=== PATIENT | female | born 1985 | race Caucasian/White ===

== ENCOUNTER 2024-09-16 19:36 | Emergency (ER) | payer BC ==
[~2024-09-16] VITALS: Ht 170.2 cm; Wt 87.6 kg
[2024-09-16 19:42] VITALS: BP 139/95; PULSE 77; RESP 18; TEMP 37.3; O2SAT 100; O2SAT 99
[2024-09-16 20:13] LABS: COLOR URINE YELLOW (YELLOW); GLUCOSE URINE NEGATIVE (NEGATIVE); KETONES URINE NEGATIVE (NEGATIVE); LEUKOCYTE ESTERASE URINE TRACE (NEGATIVE); NITRITE URINE NEGATIVE (NEGATIVE); OCCULT BLOOD URINE NEGATIVE (NEGATIVE); PROTEIN URINE NEGATIVE (NEGATIVE); SPECIFIC GRAVITY URINE 1.015 (1.005-1.030); UROBILINOGEN URINE 0.2 E.U./dL (0.2-1.0)
[2024-09-16 20:29] LABS: BASOPHILS % 0.6 % (0.0-2.0); EOSINOPHILS % 1.2 % (0.0-5.0); HEMATOCRIT. 37.9 % (36.0-48.0); HEMOGLOBIN. 12.3 g/dL (12.0-16.0); LYMPHOCYTES % 29.1 % (20.0-50.0); MEAN CORPUSCULAR HEMOGLOBIN 26.8 pg (28.0-32.0); MEAN CORPUSCULAR HGB CONC 32.4 g/dL (31.0-37.0); MEAN CORPUSCULAR VOLUME 82.8 fL (81.0-99.0); MEAN PLATELET VOLUME 9.3 fl (7.4-10.4); MONOCYTES % 8.4 % (2.0-8.0); NEUTROPHILS % 60.7 % (40.0-76.0); PLATELET 330 x1000/uL (130-400); RED BLOOD CELL COUNT 4.57 mill/uL (4.2-5.4); RED CELL DISTRIBUTION WIDTH 15.8 % (11.6-14.6); WHITE BLOOD COUNT 8.1 x1000/uL (4.5-11.0)
[2024-09-16 20:36] LABS: CHLORIDE 106 mEq/L (98-107); POTASSIUM 3.8 mEq/L (3.5-5.1); SODIUM 141 mEq/L (136-145)
[2024-09-16 20:38] LABS: CALCIUM 9.3 mg/dL (8.7-10.4); CARBON DIOXIDE 25 mEq/L (21-32)
[2024-09-16 20:40] LABS: CLARITY URINE HAZY (CLEAR)
[2024-09-16 20:43] LABS: CREATININE 0.7 mg/dL (0.6-1.0); GLUCOSE 101 mg/dL (70-105); UREA NITROGEN BLOOD 8 mg/dL (9-23)
[2024-09-16 20:45] LABS: ALANINE AMINOTRANSFERASE 11 IU/L (10-49); ALBUMIN 4.1 g/dL (3.2-4.8); ASPARTATE AMINOTRANSFERASE 15 IU/L (<34); BILIRUBIN DIRECT < 0.1 mg/dL (<=3.0); BILIRUBIN TOTAL 0.5 mg/dL (0.1-1.0); PROTEIN TOTAL 6.9 g/dL (6.0-8.3)
[2024-09-16 20:46] LABS: RBC URINE NONE SEEN /hpf (0-2); WBC URINE 0-2 /hpf (0-2)
[2024-09-16 20:47] LABS: BACTERIA URINE 1+; SQUAMOUS EPITHELIAL CELL URINE 2+ /lpf (RARE/1+)
[2024-09-16] MEDS: ONDANSETRON HCL 4MG/2ML INJ IV ONE (20:53)
[2024-09-16] MEDS: SODIUM CHLORIDE 0.9% 1,000 ML IV ONE (20:53)
[2024-09-16] MEDS ORDERED: ONDA-239 PO (21:11)
[2024-09-16] MEDS ORDERED: LOPE2CAP MT (21:11)
== END 2024-09-16 21:35 | disposition home or self-care (01) ==
LOC: ER 19:36
DX: A08.4 Viral intestinal infection, unspecified (principal); J45.909 Unspecified asthma, uncomplicated; Z88.0 Allergy status to penicillin
CPT/HCPCS: 80076; 80048; 81003; 81025; 83690; 85025; 36415; 96361; 96374; 99283; J2405; J7030; Z7610 ×2

== ENCOUNTER 2024-11-19 20:46 | Emergency (ER) | payer BC ==
[~2024-11-19] VITALS: Ht 170.2 cm; Wt 82.0 kg
[~2024-11-19 20:46] MED LIST: LOPE2CAP MT; ONDA-239 PO
[2024-11-19 20:48] VITALS: O2SAT 99
[2024-11-19] MEDS: KETOROLAC 30MG/ML VIAL IM ONE (22:10)
[2024-11-19] MEDS ORDERED: CYCL10TA21 MT (23:17)
[2024-11-19] MEDS ORDERED: IBUP-2029 MT (23:17)
[2024-11-19 23:28] VITALS: BP 118/76; PULSE 75; RESP 20; TEMP 36.7; O2SAT 99
== END 2024-11-19 23:29 | disposition home or self-care (01) ==
LOC: ER 20:46
DX: S40.012A Contusion of left shoulder, initial encounter (principal); S20.212A Contusion of left front wall of thorax, initial encounter; S70.02XA Contusion of left hip, initial encounter; Z88.0 Allergy status to penicillin; Z98.890 Other specified postprocedural states; X58.XXXA Exposure to other specified factors, initial encounter; Y93.89 Activity, other specified; Y92.89 Other specified places as the place of occurrence of the external cause; Y99.8 Other external cause status
CPT/HCPCS: 99284; 71045; 81025; 73502; 73030; 96372; J1885